=== PATIENT | female | born 1980 | race Two or more races ===

== ENCOUNTER 2021-01-18 15:02 | Outpatient (CLI) | payer OTHER | END 2021-01-18 15:15 | disposition home or self-care (01) | LOC: MAMO-SONO 15:02 → EDBD 15:02 → MAMO-SONO 15:15 | PROVIDERS: ATTEND Obstetrics & Gynecology | DX: N64.59 Other signs and symptoms in breast (principal); Z12.31 Encounter for screening mammogram for malignant neoplasm of breast; N64.4 Mastodynia; Z87.898 Personal history of other specified conditions ==

== ENCOUNTER 2021-01-22 09:35 | Outpatient (CLI) | payer OTHER | END 2021-01-22 09:59 | disposition home or self-care (01) | LOC: LAB 09:35 | PROVIDERS: ATTEND Obstetrics & Gynecology | DX: D64.89 Other specified anemias (principal); E56.8 Deficiency of other vitamins; D50.8 Other iron deficiency anemias; I10 Essential (primary) hypertension; E78.2 Mixed hyperlipidemia; N39.0 Urinary tract infection, site not specified; E55.9 Vitamin D deficiency, unspecified; Z12.11 Encounter for screening for malignant neoplasm of colon ==

== ENCOUNTER 2021-11-14 09:05 | Outpatient (CLI) | payer OTHER | END 2021-11-14 09:06 | disposition home or self-care (01) | LOC: LAB 09:05 | PROVIDERS: ATTEND Obstetrics & Gynecology | DX: I10 Essential (primary) hypertension (principal); D50.9 Iron deficiency anemia, unspecified; D64.89 Other specified anemias; E56.8 Deficiency of other vitamins; E78.2 Mixed hyperlipidemia; E55.9 Vitamin D deficiency, unspecified; Z12.11 Encounter for screening for malignant neoplasm of colon; N39.0 Urinary tract infection, site not specified ==

== ENCOUNTER 2021-11-19 08:32 | Outpatient (CLI) | payer OTHER | END 2021-11-19 08:37 | disposition home or self-care (01) | LOC: LAB 08:32 | PROVIDERS: ATTEND Obstetrics & Gynecology | DX: D50.9 Iron deficiency anemia, unspecified (principal); D64.89 Other specified anemias; I10 Essential (primary) hypertension; E55.9 Vitamin D deficiency, unspecified; E56.8 Deficiency of other vitamins; E78.2 Mixed hyperlipidemia; N39.0 Urinary tract infection, site not specified; Z12.11 Encounter for screening for malignant neoplasm of colon ==

== ENCOUNTER → 2022-08-22 08:43 | Outpatient (CLI) | payer OTHER | END | disposition home or self-care (01) | LOC: LAB 08:43 | PROVIDERS: ATTEND Internal Medicine | DX: K70.0 Alcoholic fatty liver (principal); E11.69 Type 2 diabetes mellitus with other specified complication; I11.9 Hypertensive heart disease without heart failure; E55.9 Vitamin D deficiency, unspecified; E78.2 Mixed hyperlipidemia; E03.9 Hypothyroidism, unspecified; E66.3 Overweight ==

== ENCOUNTER 2022-08-22 09:19 | Outpatient (CLI) | payer OTHER | END 2022-08-22 09:28 | disposition home or self-care (01) | LOC: MAMO-SONO 09:19 | PROVIDERS: ATTEND Obstetrics & Gynecology | DX: Z12.31 Encounter for screening mammogram for malignant neoplasm of breast (principal); N64.4 Mastodynia ==

== ENCOUNTER 2022-12-03 08:24 | Outpatient (CLI) | payer OTHER | END 2022-12-03 08:38 | disposition home or self-care (01) | LOC: SONOGRAMA 08:24 | PROVIDERS: ATTEND Obstetrics & Gynecology | DX: R10.2 Pelvic and perineal pain (principal) ==

== ENCOUNTER → 2022-12-03 09:37 | Outpatient (CLI) | payer OTHER | END | disposition home or self-care (01) | LOC: LAB 09:37 | PROVIDERS: ATTEND Internal Medicine | DX: M95.9 Acquired deformity of musculoskeletal system, unspecified (principal) ==

== ENCOUNTER 2024-02-17 08:28 | Outpatient (CLI) | payer OTHER ==
[2024-02-17 09:13] LABS: URINE APPEARANCE Clear; URINE BILIRRUBIN Negative (NEGATIVE); URINE BLOOD Negative; URINE COLOR Yellow; URINE GLUCOSE Negative (NEGATIVE); URINE KETONE Negative (NEGATIVE); URINE LEUKOCYTE Negative; URINE NITRATE Negative; URINE PROTEIN Negative (NEGATIVE); URINE UROBILINOGEN 0.2 E.U./dl
[2024-02-17 09:14] LABS: HEMATOCRIT 36.1 % (36.0-45.00); MEAN CELL VOLUME 88.4 fL (80.00-100.00); MEAN CORPUSCULAR HEMOGLOBIN 29.3 pg (27.00-32.0); MEAN CORPUSCULAR HGB CONC 33.1 g/dl (32.0-36.0); PLATELET COUNT 269 K/uL (150-450); RED BLOOD COUNT 4.08 M/uL (4.00-6.00); RED CELL DISTRIBUTION WIDTH 16.2 % (11.5-14.5)
[2024-02-17 09:18] LABS: URINE EPITHELIAL CELLS 9.2 uL (0.0-38.8); URINE RBC 2.4 uL (0.0-20.8); URINE WBC 4.1 uL (0.0-23.2)
[2024-02-17 09:32] LABS: URINE CAST 0.45 uL (0.0-1.40)
[2024-02-17 10:47] LABS: ALBUMIN 3.6 gm/dL (3.4-5.0); BILIRUBIN TOTAL 0.53 mg/dL (0.3-1.2); CALCIUM 8.8 mg/dL (8.5-10.1); CHOL HDL RATIO 2.6 (0-5.0); CREATININE SERUM 0.69 mg/dL (0.55-1.02); GLOBULINA 3.5 G/DL (2.4-3.5); POTASSIUM 3.86 mEq/L (3.5-5.1); T4 TOTAL 8.35 UG/DL (4.8-13.9); TOTAL PROTEIN 7.1 gm/dL (6.4-8.2); TSH 1.81 uIU/mL (0.358-3.74)
[2024-02-17 13:17] LABS: ob POSITIVE (NEGATIVE)
== END 2024-02-17 08:35 | disposition home or self-care (01) ==
LOC: LAB 08:28
PROVIDERS: ATTEND Obstetrics & Gynecology
DX: D50.9 Iron deficiency anemia, unspecified (principal); D64.89 Other specified anemias; E56.8 Deficiency of other vitamins; N39.0 Urinary tract infection, site not specified; I10 Essential (primary) hypertension; E78.2 Mixed hyperlipidemia; E55.9 Vitamin D deficiency, unspecified; Z12.11 Encounter for screening for malignant neoplasm of colon

== ENCOUNTER 2024-02-17 08:53 | Outpatient (CLI) | payer OTHER | END 2024-02-18 09:07 | disposition home or self-care (01) | LOC: MAMO-SONO 08:53 | PROVIDERS: ATTEND Obstetrics & Gynecology | DX: N64.4 Mastodynia (principal); Z12.31 Encounter for screening mammogram for malignant neoplasm of breast; J18.9 Pneumonia, unspecified organism; D25.9 Leiomyoma of uterus, unspecified ==

== ENCOUNTER 2024-09-22 09:17 | Outpatient (CLI) | payer OTHER ==
[2024-09-22 10:58] LABS: HEMATOCRIT 38.6 % (36.0-45.00); MEAN CELL VOLUME 90.8 fL (80.00-100.00); MEAN CORPUSCULAR HEMOGLOBIN 30.6 pg (27.00-32.0); MEAN CORPUSCULAR HGB CONC 33.7 g/dl (32.0-36.0); PLATELET COUNT 280 K/uL (150-450); RED BLOOD COUNT 4.25 M/uL (4.00-6.00); RED CELL DISTRIBUTION WIDTH 14.1 % (11.5-14.5)
[2024-09-22 11:42] LABS: ALBUMIN 3.8 gm/dL (3.4-5.0); BILIRUBIN TOTAL 0.54 mg/dL (0.3-1.2); BILIRUBIN,CONJUGATED 0.15 mg/dL (0.0-0.2); BILIRUBIN,UNCONJUGATED 0.39 mg/dL (0.0-0.6); CALCIUM 9.5 mg/dL (8.5-10.1); CREATININE SERUM 0.71 mg/dL (0.55-1.02); GFR 88.62; PHOSPHOROUS 3.5 mg/dL (2.5-4.9); POTASSIUM 4.29 mEq/L (3.5-5.1); TOTAL PROTEIN 7.5 gm/dL (6.4-8.2); TSH 2.26 uIU/mL (0.358-3.74)
[2024-09-23 09:07] LABS: FOLLICLE STIMULATING HORMONE 9.3 mIU/mL (.); LEUTEINIZING HORMONE 8.8 mIU/mL (.); PROGESTERONA < 0.1 ng/mL (.)
== END 2024-09-22 09:18 | disposition home or self-care (01) ==
LOC: LAB 09:17
PROVIDERS: ATTEND Internal Medicine
DX: K92.1 Melena (principal); K76.9 Liver disease, unspecified; E78.9 Disorder of lipoprotein metabolism, unspecified; N95.9 Unspecified menopausal and perimenopausal disorder; E55.9 Vitamin D deficiency, unspecified; E03.9 Hypothyroidism, unspecified; I11.9 Hypertensive heart disease without heart failure; N63.0 Unspecified lump in unspecified breast; N40.0 Benign prostatic hyperplasia without lower urinary tract symptoms; E29.1 Testicular hypofunction

== ENCOUNTER → 2024-09-22 10:27 | Outpatient (CLI) | payer OTHER | END | disposition home or self-care (01) | LOC: NUCLEAR 10:27 | PROVIDERS: ATTEND Internal Medicine | DX: I87.323 Chronic venous hypertension (idiopathic) with inflammation of bilateral lower extremity (principal); I82.409 Acute embolism and thrombosis of unspecified deep veins of unspecified lower extremity ==